=== PATIENT | male | born 1950 | race Caucasian/White ===

== ENCOUNTER → 2019-09-16 | Outpatient (CLI) | payer BC ==
[~2019-09-16] MED LIST: DUO-KAPS1 CAP PO; GLUCOSAMINE & C1 CA1 PO; LIPITOR 40MG TA40 MG PO; MULTI VITAMINS1 TAB PO; NASACORT AQ N16.5 GM NS; NORCO 325 MG-51 TAB PO; PROSCAR 5MG5 MG PO
== END ==
LOC: COL.RAD 11:53
DX: R31.9 Hematuria, unspecified (principal); R10.9 Unspecified abdominal pain

== ENCOUNTER 2019-10-16 08:35 | Day surgery (SDC) | payer BC ==
[~2019-10-16] VITALS: Ht 167.6 cm; Wt 59.5 kg
[~2019-10-16 08:35] MED LIST changes: +LIPITOR20 MG PO; -MULTI VITAMINS1 TAB PO; +ONE-A-DAY ESSE1 EACH PO
[2019-10-16 09:51] VITALS: BP 134/79; PULSE 85; TEMP 98.4
[2019-10-16] MEDS ORDERED: EPA FISH OIL1 SGL PO (10:00)
[2019-10-16] MEDS ORDERED: CIALIS5 MG PO (10:00)
[2019-10-16] MEDS ORDERED: [UNRECOGNIZED DRUG - OTHER] OP (10:03)
[2019-10-16] MEDS ORDERED: EYE DROP ADVANC15 ML OP (10:03)
[2019-10-16] MEDS ORDERED: [UNRECOGNIZED DRUG - OTHER] OP (10:04)
[2019-10-16] MEDS ORDERED: NASACORT OTC NS (10:04)
[2019-10-16 12:30] VITALS: BP 119/86; PULSE 92; TEMP 99.1
--- NOTE | 2019-10-16 12:30 | NUR ---
Pt returned via cart to [place] 1. Pt easily arouses to name. VSS-see flowsheet. Pt voided in PACU prior to returning to room. Denies needs or complaints. Side rails up. Call light and glasses at bedside, in pts reach.
[2019-10-16 12:45] VITALS: BP 126/78; PULSE 85
[2019-10-16 13:00] VITALS: BP 135/79; PULSE 85
[2019-10-16 13:15] VITALS: BP 145/87; PULSE 92
--- NOTE | 2019-10-16 14:10 | NUR ---
VS remain stable. Denies wanting to eat or drink anything.. IV removed and pressure dressing applied. Pt ambulated to bathroom to void without difficulty. Does report discomfort with urination. Discharge teaching completed, pt verbalized understanding. Pt taken via wheelchair to private vehicle with to drive pt home.
[2019-10-16 16:31] VITALS: BP 119/86; PULSE 90; TEMP 99.1
== END 2019-10-16 14:10 | disposition home or self-care (01) ==
LOC: SDCO 08:35
DX: C65.1 Malignant neoplasm of right renal pelvis (principal); K21.9 Gastro-esophageal reflux disease without esophagitis; E78.5 Hyperlipidemia, unspecified; N40.0 Benign prostatic hyperplasia without lower urinary tract symptoms; M19.90 Unspecified osteoarthritis, unspecified site; Z87.891 Personal history of nicotine dependence; Z88.6 Allergy status to analgesic agent; Z85.828 Personal history of other malignant neoplasm of skin; Z88.0 Allergy status to penicillin; Z20.828 Contact with and (suspected) exposure to other viral communicable diseases
CPT/HCPCS: C1758; C1769; C2617; J0690; J2704; J3010; J7120; Q9967

== ENCOUNTER → 2019-11-05 | Outpatient (CLI) | payer BC ==
--- NOTE | 2019-11-03 08:44 | NUR ---
LMOM WITH DATE, TIME AND INSTRUCTIONS. CALL BACK NUMBER INCLUDED
[~2019-11-05] VITALS: Ht 167.6 cm; Wt 59.5 kg
[2019-11-05] VITALS (16 sets, daily range): BP systolic 123–143; BP diastolic 72–83; PULSE 94–111
[~2019-11-05] MED LIST changes: +CIALIS5 MG PO; +EPA FISH OIL1 SGL PO; +EYE DROP ADVANC15 ML OP; +LUMIGAN 2.5 ML2.5 M1 OP; +NASACORT OTC NS; +SYSTANE 0.4%-0.1 SOL OP; +[UNRECOGNIZED DRUG - OTHER] OP; +[UNRECOGNIZED DRUG - OTHER] OP
--- NOTE | 2019-11-05 07:57 | NUR ---
PT BROUGHT INTO CT AND POSITION ON TABLE.
== END ==
LOC: COL.RAD 06:30
DX: N28.89 Other specified disorders of kidney and ureter (principal)
CPT/HCPCS: Q9967

== ENCOUNTER 2019-11-25 11:35 | Day surgery (SDC) | payer BC ==
[~2019-11-25] VITALS: Ht 167.6 cm; Wt 58.5 kg
[~2019-11-25 11:35] MED LIST changes: +LUMIGAN 5 ML5 M1 OP; -SYSTANE 0.4%-0.1 SOL OP
[2019-11-25 13:06] VITALS: BP 132/76; PULSE 89; TEMP 98.4
[2019-11-25] MEDS ORDERED: TYLENOL 500MG500 MG PO (13:15)
[2019-11-25 14:01] VITALS: BP 123/76; PULSE 94
--- NOTE | 2019-11-25 14:01 | NUR ---
Patient returns to room 3 per cart from surgery and is awake and alert. Left port a catheter site accessed and site is free of redness or swelling. IV fluids infusing and site is clear. Denies pain or nausea. Temp 97.4 and room air sats 99%.
[2019-11-25 14:16] VITALS: BP 119/78; PULSE 82
--- NOTE | 2019-11-25 14:16 | NUR ---
Room air sats 100%. Awake and sipping on water.
[2019-11-25 14:31] VITALS: BP 123/66; PULSE 78
--- NOTE | 2019-11-25 14:31 | NUR ---
Ate muffin, drank coffee and water. Denies need for pain medication. Dressing covering the right port a catheter insertion site dry. Patient states that he is now ready to go home.
--- NOTE | 2019-11-25 14:44 | NUR ---
IV discontinued and site is free of redness. Spouse called for ride home. Patient dresses self.
--- NOTE | 2019-11-25 14:57 | NUR ---
Dismissal instructions given and signed and voices understanding of these.
--- NOTE | 2019-11-25 15:00 | NUR ---
Patient dismissed to home driven by spouse and taken to the front door per wheelchair by this RN and assisted into car with instructions in hand.
== END 2019-11-25 15:25 | disposition home or self-care (01) ==
LOC: SDCO 11:35
DX: C65.1 Malignant neoplasm of right renal pelvis (principal); Z20.828 Contact with and (suspected) exposure to other viral communicable diseases; Z79.899 Other long term (current) drug therapy; Z85.828 Personal history of other malignant neoplasm of skin; Z88.0 Allergy status to penicillin; Z88.8 Allergy status to other drugs, medicaments and biological substances
CPT/HCPCS: C1788; J0690; J1644; J2704; J7120

== ENCOUNTER 2019-12-05 15:36 | Emergency (ER) | payer BC ==
[~2019-12-05] VITALS: Ht 167.6 cm; Wt 56.8 kg
[~2019-12-05 15:36] MED LIST changes: +TYLENOL 500MG500 MG PO
[2019-12-05 16:12] LABS: MEAN CELL VOLUME 85 fl (80.0-100.0); MEAN CORPUSCULAR HGB CONC 32 g/dl (33.0-37.0); MEAN PLATELET VOLUME 9.5 fl (7.4-10.4); PLATELET COUNT 141 K/mm3 (130-400)
[2019-12-05 16:13] LABS: HEMATOCRIT 29.8 % (42.0-52.0); HEMOGLOBIN 9.4 g/dl (13.5-18.0); MEAN CORPUSCULAR HEMOGLOBIN 27 pg (27.0-31.0)
[2019-12-05] MEDS ORDERED: BENADRYL25 M2 PO (16:14)
[2019-12-05 16:15] LABS: PROTHROMBIN TIME 11.4 SECONDS (9.7-12.8)
[2019-12-05 16:17] LABS: PARTIAL THROMBOPLASTIN TIME 33.3 SECONDS (26.0-37.0)
[2019-12-05] MEDS ORDERED: ZOFRAN8 MG PO (16:17)
[2019-12-05] MEDS ORDERED: ULTRAM 50MG TAB50 MG PO (16:18)
[2019-12-05 16:22] LABS: ALANINE AMINOTRANSFERASE 19 U/L (4-49); ALBUMIN 3.7 gm/dL (3.5-5.0); ALKALINE PHOSPHATASE 80 U/L (50-136); ANION GAP 8 mmol/L (7-16); AST,SGOT 22 U/L (15-37); BILIRUBIN,TOTAL 0.3 mg/dL (0.0-1.0); BLOOD UREA NITROGEN 25 mg/dL (9-20); CALCIUM 8.8 mg/dL (8.4-10.2); CARBON DIOXIDE 26 mmol/L (22-30); CHLORIDE 101 mmol/L (98-107); CREATININE, serum 1.25 (0.66-1.25); GLUCOSE 113 mg/dL (74-106); POTASSIUM 4.2 mmol/L (3.4-5.0); SODIUM 135 mmol/L (137-145); TOTAL PROTEIN 7.2 gm/dL (6.4-8.2)
[2019-12-05 16:35] LABS: TROPONIN-I < 0.012 ng/mL (0.000-0.035)
[2019-12-05 17:09] LABS: BAND 24 % (0-10); EOSINOPHIL 4 % (0-4); LYMPHOCYTE 26 % (20.0-51.0); NEUTROPHILS 37 % (42.0-75.2)
[2019-12-05 17:10] LABS: HYPOCHROMIA 2+; PLATELET ESTIMATE NORMAL (NORMAL)
[2019-12-05 19:06] VITALS: BP 127/21; PULSE 96
== END 2019-12-05 19:15 | disposition home or self-care (01) ==
LOC: COL.ER 15:36
PROVIDERS: Family Medicine
DX: R07.89 Other chest pain (principal); R11.0 Nausea; Z88.0 Allergy status to penicillin; Z85.528 Personal history of other malignant neoplasm of kidney; Z88.6 Allergy status to analgesic agent; Z88.8 Allergy status to other drugs, medicaments and biological substances
CPT/HCPCS: J1644

== ENCOUNTER → 2020-01-13 | Outpatient (CLI) | payer BC ==
[~2020-01-13] MED LIST changes: +CLARITIN 1010 MG/TAB PO; +NATURAL IRON65 MG; +PRILOTC PO; +ULTRAM 50MG TAB50 MG PO; +ZOFRAN8 MG PO
== END ==
LOC: COL.RAD 09:02
DX: C65.1 Malignant neoplasm of right renal pelvis (principal)
CPT/HCPCS: Q9967

== ENCOUNTER 2020-01-14 07:30 | Outpatient (RCR) | payer BC ==
[2020-01-14] VITALS (9 sets, daily range): BP systolic 122–150; BP diastolic 72–88; PULSE 86–99; TEMP 97.9–98.8
[~2020-01-14] VITALS: Ht 167.6 cm; Wt 60.9 kg
[~2020-01-14 07:30] MED LIST changes: -NATURAL IRON65 MG; -PRILOTC PO
[2020-01-14] MEDS ORDERED: NATURAL IRON65 MG (08:38)
[2020-01-14] MEDS ORDERED: PRILOTC PO (08:39)
--- NOTE | 2020-01-14 13:00 | NUR ---
Pt tolerated blood transfusions well. He was ambulatory during infusion multiple times to bathroom, steady gait noted. He did report mild nausea, but did not want me to call Dr. Tobias for an order for nausea med. He refused any food or beverage during his stay. Port flushed per protocol and dc'd. pt amb to exit with steady gait.
== END 2020-01-14 13:02 | disposition home or self-care (01) ==
LOC: EUO 07:30
DX: C77.2 Secondary and unspecified malignant neoplasm of intra-abdominal lymph nodes (principal); C65.1 Malignant neoplasm of right renal pelvis; Z95.9 Presence of cardiac and vascular implant and graft, unspecified
CPT/HCPCS: J1644; J7050; P9016

== ENCOUNTER 2020-07-26 16:10 | Inpatient (IN) | payer BC ==
[~2020-07-26] VITALS: Ht 167.6 cm; Wt 75.4 kg
[~2020-07-26 16:10] MED LIST changes: +NATURAL IRON65 MG PO; +PRILOTC PO
[2020-07-26 16:28] LABS: BASO # 0.1 (0.0-0.2); BASO % 0.5 % (0.0-2.0); EOS # 0.2 (0.0-0.7); EOS % 0.9 % (0-4.0); GRAN # 18.2 (1.4-6.5); GRAN % 85.1 % (42.2-75.2); LYMPH # 1.3 (1.2-3.4); LYMPH % 6.3 % (20.0-51.0); MEAN CELL VOLUME 94 fl (80.0-100.0); MEAN CORPUSCULAR HGB CONC 30 g/dl (33.0-37.0); MEAN PLATELET VOLUME 8.8 fl (7.4-10.4); MONO # 1.4 (0.1-0.6); MONO % 6.4 % (1.7-9.3); PLATELET COUNT 671 K/mm3 (130-400); RED BLOOD COUNT 2.28 M/mm3 (4.20-5.60); REDCELL DISTRIBUTION WIDTH-CV 13.5 % (11.5-14.5)
[2020-07-26 16:31] LABS: HEMATOCRIT 21.4 % (42.0-52.0); HEMOGLOBIN 6.5 g/dl (13.5-18.0); MEAN CORPUSCULAR HEMOGLOBIN 29 pg (27.0-31.0)
[2020-07-26 16:36] LABS: ALBUMIN 3.6 gm/dL (3.5-5.0); BILIRUBIN,TOTAL 0.4 mg/dL (0.0-1.0); CALCIUM 10.4 mg/dL (8.4-10.2); CREATININE, serum 1.63 (0.66-1.25); POTASSIUM 4.9 mmol/L (3.4-5.0); TOTAL PROTEIN 7.6 gm/dL (6.4-8.2)
[2020-07-26 16:41] LABS: PROTHROMBIN TIME 22.5 SECONDS (9.7-12.8)
--- NOTE | 2020-07-26 19:00 | NUR ---
Getting report from previous nurse Deborah NEWMAN, she states that Katie GREEN has pts med list and is going to do the med rec, Deborah NEWMAN also accessed the Port in pts right chest w//4Inch leung needle- states is not getting blood return , flushes well, and is OK to use per Katie GREEN.
--- NOTE | 2020-07-26 19:06 | NUR ---
Vancomycin Initial Dosing Pharmacy Note Ordering provider: Iglesia Phillips MD Indication/duration: Empiric, 7 days LABS: SCr 1.63, CrCl~34, GFR 42 Recommendation: Will give Vancomycin 1.25 gm IV x1 loading dose, then Vancomycin 1 gm IV q24h. Pharmacy will continue to monitor and check a Vancomycin trough on 07/29/20. Loading dose: 1.25 grams Maintenance dose: 1 gram every 24 hours Trough goal: 15-20 ug/mL
[2020-07-26 19:31] VITALS: BP 97/56; PULSE 123; TEMP 99.1
--- NOTE | 2020-07-26 19:40 | NUR ---
Did attempt to get blood return from Port, supervisor transcribing operators here also- since no blood return, will not use Port tonight-- will use peripheral for IV fluids and Blood.
--- NOTE | 2020-07-26 19:45 | NUR ---
Initial shift assessment done- resting, alert/oriented, has mesha to head laceration, some swelling around site, pt states he is not having head pain, Was up to bathroom with assistance, did have lots of gas but no BM, voided small amount of urine. IV fluids of NS at 125cc/hr to L/AC IV site. Did eat some supper- requesting apple juice at this time. Tele on, HR 110-120, Did call lab about blood order , lab did put in stat order for irradiated blood-- needs to come from [facility] , trying to get it tonight.
[2020-07-26 21:18] LABS: COLLECTION METHOD CLEAN CATCH
[2020-07-26 21:35] LABS: MUCOUS Present /lpf; PH 5 (5-8); SQUAMOUS EPITHELIAL None Seen /hpf; URINE APPEARANCE Hazy; URINE BACTERIA None Seen /hpf; URINE BILIRUBIN Negative (NEGATIVE); URINE BLOOD Negative (NEGATIVE); URINE COLOR Yellow; URINE GLUCOSE Negative (NEGATIVE); URINE KETONE Negative (NEGATIVE); URINE LEUKOCYTE ESTERASE Negative (NEGATIVE); URINE NITRATE Negative (NEGATIVE); URINE PROTEIN(semi-quant) Negative (NEGATIVE); URINE RBC 0-2 /hpf; URINE UROBILINOGEN Negative (NEGATIVE)
[2020-07-26 23:57] VITALS: BP 96/59; PULSE 117; TEMP 98.7
[2020-07-27] VITALS (14 sets, daily range): BP systolic 95–134; BP diastolic 54–75; PULSE 107–118; TEMP 97.4–99
--- NOTE | 2020-07-27 00:10 | NUR ---
Unit of irradiated PRBC,s started at this time-- infusing into L/AC IV site without problems-- pt did have some nausea before blood started and Zofran was given. Blood started at 60cc/hr for first 15 minutes- nurse at bedside.
[2020-07-27] MEDS ORDERED: ELIQUIS 5MG PO (01:04)
[2020-07-27] MEDS ORDERED: BENADRYL25 M2 PO (01:05)
[2020-07-27] MEDS ORDERED: ASPIRIN 81M81 MG/TA2 PO (01:05)
[2020-07-27] MEDS ORDERED: SENNA-S 50 MG-81 TAB PO (01:06)
[2020-07-27] MEDS ORDERED: MIRALAX PA17 GM/Dose PO (01:06)
[2020-07-27] MEDS ORDERED: ROBAXIN 75750 MG/TAB PO (01:06)
[2020-07-27] MEDS ORDERED: OXY IR5 MG PO (01:06)
[2020-07-27] MEDS ORDERED: SYSTANE 0.4%-0.1 SOL OP (01:07)
[2020-07-27] MEDS ORDERED: ACETIV IV (01:08)
[2020-07-27] MEDS ORDERED: TYLENOL 500MG500 MG PO (01:09)
--- NOTE | 2020-07-27 03:18 | NUR ---
Unit of blood completed- no signs /symptoms of adverse reactions.VSS. PT sleeping well since Roxicodone was given a few hours ago.
--- NOTE | 2020-07-27 05:30 | NUR ---
Up to bathroom with assist, HR up to 140,s per Tele,, back to bed, HR did go down to 110-115/min, has been between 100-118 most of the night-- did get the unit of blood earlier as ordered, getting IV antibiotics, IV fluids of NS at 125cc/hr. Katie GREEN was her at this time to check on pts status, pt states pain 7/10 all over,back etc,,will give Roxicodone as ordered, wants to watch some TV-- helped with remote to find his station. Fresh water given , no other requests.
[2020-07-27 07:31] LABS: CALCIUM 9.2 mg/dL (8.4-10.2); CREATININE, serum 1.4 (0.66-1.25); POTASSIUM 5.1 mmol/L (3.4-5.0)
[2020-07-27 07:34] LABS: BASO # 0.1 (0.0-0.2); BASO % 0.4 % (0.0-2.0); EOS # 0.1 (0.0-0.7); EOS % 0.6 % (0-4.0); GRAN # 15.6 (1.4-6.5); GRAN % 86.1 % (42.2-75.2); LYMPH # 0.8 (1.2-3.4); LYMPH % 4.5 % (20.0-51.0); MEAN CELL VOLUME 92 fl (80.0-100.0); MEAN CORPUSCULAR HGB CONC 31 g/dl (33.0-37.0); MEAN PLATELET VOLUME 8.8 fl (7.4-10.4); MONO # 1.4 (0.1-0.6); MONO % 7.5 % (1.7-9.3); RED BLOOD COUNT 2.41 M/mm3 (4.20-5.60); REDCELL DISTRIBUTION WIDTH-CV 13.5 % (11.5-14.5)
[2020-07-27 07:38] LABS: HEMATOCRIT 22.2 % (42.0-52.0); HEMOGLOBIN 6.9 g/dl (13.5-18.0); MEAN CORPUSCULAR HEMOGLOBIN 29 pg (27.0-31.0); PLATELET COUNT 474 K/mm3 (130-400)
--- NOTE | 2020-07-27 08:45 | NUR ---
Shift assessment complete. Pt up w/PT in martínez, became dizzy and had to be sat down in chair and wheeled back to room. A&Ox4. Heart RRR. Lungs CTA. Denies pain or SOA at this time. NS infusing to left AC IV. Port accessed, no blood return noted. Spoke w/K.Bulk dog food shredder operator and Rylie with [facility] who advised not to use port at this time. Hospitalist notified. Pt denies needs at this time. Call light in reach.
--- NOTE | 2020-07-27 10:07 | NUR ---
Blending Tank Helper attended clinical rounds with the team. PT/OT ordered. PICC line to be placed. The patient has renal cell carcinoma. Dr. Tobias is the patient's oncologist. Oncology consulted.
[2020-07-27 11:09] LABS: IRON,SERUM 31 ug/dL (35-150)
[2020-07-27 11:18] LABS: TOTAL IRON BINDING CAPACITY 173 ug/dL (261-462)
--- NOTE | 2020-07-27 14:00 | NUR ---
Pt refused PICC line today until hearing 's opinion. Called Jatinder's office about this and told would return call later. At this time, Jatinder's office called back stating felt a PICC line was a good idea for the pt. Pt notified of this and would like to move forward w/ PICC placement. Rylie w/Xiao unable to complete at this time but will place PICC tomorrow AM.
--- NOTE | 2020-07-27 15:12 | NUR ---
Freight Tallier met with the patient and the patient's , Ike to complete intake. The patient lives in [place] with Ike. The patient denies DME use. The patient has been needing some assistance with ADLs lately, Ike assists. The patient's PCP is Dr. Flores and patient receives medications from [facility]. The patient does not have advanced directives. The patient plans to return home at discharge. The patient sees Dr. Tobias for Ketruda treatment every three weeks. This coming Saturday, 07/29 the patient is supposed to have his third treatment. The patient inquired about a seated 4WW walker. The patient is ambulating with PT without a walker and this SW discussed the possiblity that the patient may have to purchase the walker out of pocket. A referral was sent to [facility]. Yulia reports that they will try to bill the insurance but the patient will have to sign paperwork in case the insurance will not cover it. The cost is out of pocket $200. Cost also depends on deductibles. SW contacted [facility] [employer] for walkers and they do not have any in stock and would take two weeks to get one. Since the patient is ambulating without a walker, this SW staffed Sirena with PT regarding education ambulating with a 4WW (seated). *Discharge disposition at this time* Home
[2020-07-27 17:06] LABS: HEMATOCRIT 24.2 % (42.0-52.0); HEMOGLOBIN 7.7 g/dl (13.5-18.0)
--- NOTE | 2020-07-27 17:24 | NUR ---
Blood transfusion complete at this time. Pt tolerated well. VSS.
[2020-07-28] VITALS (7 sets, daily range): BP systolic 105–135; BP diastolic 59–77; PULSE 110–117; TEMP 97.5–99
--- NOTE | 2020-07-28 06:32 | NUR ---
NO NEW ISSUES NOTED OR REPORTED BY PATIENT THROUGHOUT THE NIGHT. PRN PAIN MEDICATION ADMINISTERED REQUESTED BY PATIENT PER 'S ORDERS.
[2020-07-28 07:29] LABS: BASO # 0.1 (0.0-0.2); BASO % 0.6 % (0.0-2.0); EOS # 0.3 (0.0-0.7); EOS % 1.4 % (0-4.0); GRAN # 15.3 (1.4-6.5); GRAN % 84.6 % (42.2-75.2); LYMPH # 0.9 (1.2-3.4); MEAN CELL VOLUME 91 fl (80.0-100.0); MEAN CORPUSCULAR HGB CONC 31 g/dl (33.0-37.0); MEAN PLATELET VOLUME 8.8 fl (7.4-10.4); MONO # 1.4 (0.1-0.6); MONO % 7.6 % (1.7-9.3); PLATELET COUNT 467 K/mm3 (130-400); REDCELL DISTRIBUTION WIDTH-CV 15.4 % (11.5-14.5)
[2020-07-28 07:38] LABS: BILIRUBIN,TOTAL 0.6 mg/dL (0.0-1.0); CALCIUM 9.6 mg/dL (8.4-10.2); CREATININE, serum 1.31 (0.66-1.25); POTASSIUM 5.4 mmol/L (3.4-5.0); TOTAL PROTEIN 6.3 gm/dL (6.4-8.2)
[2020-07-28 07:41] LABS: HEMATOCRIT 25.6 % (42.0-52.0); HEMOGLOBIN 7.9 g/dl (13.5-18.0); MEAN CORPUSCULAR HEMOGLOBIN 28 pg (27.0-31.0)
--- NOTE | 2020-07-28 09:42 | NUR ---
PT. RETURNED FROM CT, IN BED SITTING UP, CONSUMING BREAKFAST AT THIS TIME. CALL LIGHT WITHIN REACH.
--- NOTE | 2020-07-28 10:52 | NUR ---
Initial visit; Patient thanked Card Game Operator for offering God's blessings.
--- NOTE | 2020-07-28 13:51 | NUR ---
Primary nurse was assisted with [phone] patient care by [facility] student Una Don and [facility] instructor Judy Daily MSN, RN.
--- NOTE | 2020-07-28 17:21 | NUR ---
Pt. resting in bed upon entering, A/O x4, with at bedside. Pt. currently free of fever, chills, s/s. Pt. was able to independently ambulate to toilet with supervision. Was able to void free of complication. Pt. did inform nurse he was feeling pain to his lower back, rates 3/10 and does not need any intervention at this time. PICC in [facility] placed 07/28/20, free of inflammation, redness or drainage. Laceration on right side of head free of drainage, redness and inflammation. SCD's on, Pt. expresses no additional needs at this time. Call light within reach.
[2020-07-28 17:29] LABS: CALCIUM 9.2 mg/dL (8.4-10.2); CREATININE, serum 1.15 (0.66-1.25); POTASSIUM 5.1 mmol/L (3.4-5.0)
[2020-07-28 17:34] LABS: HEMOGLOBIN 7.3 g/dl (13.5-18.0)
[2020-07-29] VITALS (13 sets, daily range): BP systolic 102–129; BP diastolic 60–78; PULSE 76–120; TEMP 97.7–98.4
--- NOTE | 2020-07-29 05:51 | NUR ---
PATIENT HAS RESTED COMFORTABLY IN BED SINCE RECEIVING THE 0.25MG DILAUDID IV. NO OTHER NEW ISSUES NOTED OR REPORTED BY PATIENT.
[2020-07-29 06:11] LABS: BASO # 0.1 (0.0-0.2); BASO % 0.5 % (0.0-2.0); EOS # 0.3 (0.0-0.7); EOS % 1.5 % (0-4.0); GRAN # 14.9 (1.4-6.5); GRAN % 85.1 % (42.2-75.2); LYMPH # 0.9 (1.2-3.4); MEAN CELL VOLUME 93 fl (80.0-100.0); MEAN CORPUSCULAR HGB CONC 31 g/dl (33.0-37.0); MEAN PLATELET VOLUME 9.1 fl (7.4-10.4); MONO # 1.3 (0.1-0.6); MONO % 7.2 % (1.7-9.3); PLATELET COUNT 375 K/mm3 (130-400); RED BLOOD COUNT 2.36 M/mm3 (4.20-5.60); REDCELL DISTRIBUTION WIDTH-CV 15.5 % (11.5-14.5)
[2020-07-29 06:21] LABS: CALCIUM 9.3 mg/dL (8.4-10.2); CREATININE, serum 1.14 (0.66-1.25); POTASSIUM 4.9 mmol/L (3.4-5.0)
[2020-07-29 06:58] LABS: HEMOGLOBIN 6.8 g/dl (13.5-18.0); MEAN CORPUSCULAR HEMOGLOBIN 29 pg (27.0-31.0)
--- NOTE | 2020-07-29 07:20 | NUR ---
CALLED JANETH GREEN FOR CRITICAL HGB, NEW ORDERS WRITTEN.
--- NOTE | 2020-07-29 07:46 | NUR ---
Pt reports nausea without vomiting. Primary nurse notified.
--- NOTE | 2020-07-29 09:26 | NUR ---
notified love lyman of critical wbc, no new orders written at this time.
--- NOTE | 2020-07-29 10:49 | NUR ---
I was able to reach Shahriar by phone at [phone]. She is planning on being at the hospital in about an hour. She reports that she has not heard from Dr Tobias and didn't know if Maximino had or not. I did tell her that he saw Maximino this morning. I am not sure that she is aware of what Maximino was told this morning or not and did not want to discuss over the phone. i will try to met with her after she arrives at the hospital.
--- NOTE | 2020-07-29 12:56 | NUR ---
Primary nurse was assisted with [phone] patient care by [facility] student Una Don and [facility] instructor Judy Daily MSN, RN.
--- NOTE | 2020-07-29 14:44 | NUR ---
The patient's RN notified ROCKY that Dr. Tobias came and met with the patient this morning and the patient is now wanting to pursue hospice. A palliative care consult was ordered. The patient's , Heather, arrived to the hospital. ROCKY staffed with Palliative Care Nurse, Brittni. Brittni attempted to meet with the patient and his , but the patient requested that she come back later. The hospitalist and PA then notified ROCKY that they rounded on the patient, with his at bedside. The patient and his would like to return home with hospice and they had questions for ROCKY. ROCKY then met with the patient and his , Heather. The patient confirmed that he would like to return home with hospice. Heather is supportive of his decision. ROCKY provided the patient and his with Medicare.gov's list of hospice agencies that serve [place]. The patient and his expressed interest in either [facility] or [facility] and they were interested in talking to both to determine which one they would prefer. ROCKY contacted Torres at [facility] and he came and met with the patient and his . The patient's planned on contacting [facility] to ask them questions. They would like for ROCKY to follow up with them at a later time. SW to continue to follow.
--- NOTE | 2020-07-29 14:44 | NUR ---
Pt had asked that I not come in as he wished to talk with his family earlier. He has now met with Dr Noonan, social science manager, and myself. Amanda Aranda social science manager, had also called Torres from [facility] to come talk with family. At this point they are talking with Torres from [facility] about what hospice at home might look like. Pt keeps his head down and appears to sleep during part of out conversation but then will contribute at intervals, his and son seem to be struggling with the news of advanced disease and now plan to go on hospice at home. Support offered. We will see what decisions they make.
--- NOTE | 2020-07-29 15:48 | NUR ---
PT EDUCATED ON S/S OF BLOOD TRANSFUSION REACTIONS, PT HAS NOT HAD ANY REACTIONS TO BLOOD TRANSFUSIONS IN THE PAST. VITALS TAKEN, PT REPORTS BACK PAIN BEFORE STARTING. STAYED WITH PT FOR FIRST 15 MINUTES AND THEN RATE INCREASED. VITALS CONSISTENT WITH STARTING SET.
--- NOTE | 2020-07-29 15:57 | NUR ---
ROCKY followed up with the patient and his , Ruddy. Ruddy reports that she was able to speak to [facility] and they have decided to pursue [facility]. She reports that [facility] informed her that they would not be able to admit him until Saturday though. ROCKY contacted and faxed a referral to Viola at [facility]. Viola reports that she is checking with the scheduling to see when they have availablilty to admit the patient and will contact ROCKY back, once they know. ROCKY updated Torres at [facility].
[2020-07-29] MEDS ORDERED: LUMIGAN 7.5 ML7.5 M1 OU (18:22)
[2020-07-29] MEDS ORDERED: SYSTANE BALANCE10 M1 OU ×2 (18:25→18:26)
--- NOTE | 2020-07-29 18:29 | NUR ---
PT. SITTING UP IN BED, A/O X4, WITH AT BEDSIDE. BLOOD TRANSFUSION DC'D, IV FLUIDS INFUSING, N/S VIA YAIR PICC AT 75ML/HR. VSS, PT. FREE OF FEVER, CHILLS, DIZZINESS. PICC PATENT, FREE OF INFLAMMATION, REDNESS AND DRAINAGE. PT REPORTS HIS STOMACH FEEELING "YUCKY", ZOFRAN WAS ADMINSTERED, PT HOPES IT WILL BUILD HIS APPETITE. PT EXPRESSES NO ADDITIONAL NEEDS AT THIS TIME. CALL LIGHT WITHIN REACH.
[2020-07-30 00:06] VITALS: BP 110/67; PULSE 117; TEMP 98.9
[2020-07-30 04:25] VITALS: BP 112/59; PULSE 113; TEMP 98.7
--- NOTE | 2020-07-30 05:25 | NUR ---
NO NEW ISSUES NOTED OR REPORTED BY PATIENT THROUGHOUT THE NIGHT. PATIENT UP TO THE BATHROOM SEVERAL TIMES THROUGHOUT NIGHT WITH SBA.
[2020-07-30 09:31] VITALS: BP 95/54; PULSE 112; TEMP 97.8
[2020-07-30 13:46] VITALS: BP 108/62; PULSE 111; TEMP 98.2
[2020-07-30 16:00] VITALS: BP 113/67; PULSE 108; TEMP 97.5
--- NOTE | 2020-07-30 18:56 | NUR ---
Recieved report from PATY Cabrera. Patient C/O pain in back rated 3/10. Describes the pain as cramping. Reports that it is at a manageable level. Patient up to the bathroom with 1 assist. at bedside. Patient denies any pain, discomfort, or further needs at this time. Bedside report given to PATY Thompson. Call light within reach. Fall precautions in place.
[2020-07-30 19:50] VITALS: BP 117/66; PULSE 110; TEMP 99
--- NOTE | 2020-07-30 20:00 | NUR ---
Patient assessed at this time. Alert and oriented, and able to make needs known. Given PRN Roxicodone as requested for pain to back. Double lumen PICC to RUE, with IV fluids infusing per orders. Denies SOB and dyspnea. LS CTA. Respirations even and unlabored. HRR. Capillary refill less than 3 seconds. Non-tenting skin turgor. BSAx4. Abdomen soft and non-tender. No edema. Laceration to right forehead. Voices no questions, needs, or concerns at this time. Resting in bed with call light within reach.
[2020-07-31 04:54] VITALS: BP 101/59; PULSE 118; TEMP 98.5
--- NOTE | 2020-07-31 05:53 | NUR ---
Patient has been resting in bed with call light within reach. Requested scheduled APAP this morning, stating that he takes it carlos 8 hours. Order for TID changed to Q8H, at 0600, 1400, and 2200 per patient's request. IV fluids continue per order. Voices no further questions, needs, or concerns at this time. High fall risk precautions remain in place.
[2020-07-31 07:13] VITALS: BP 109/59; PULSE 118; TEMP 98.5
--- NOTE | 2020-07-31 07:19 | NUR ---
PT IS SITTING UP IN BED ORDERING BREAKFAST AT THIS TIME. DENIES ANY PAIN, WILL CONTINUE TO MONITOR THIS. STUDENT NURSE JUAN JOSÉ WILL BE ASSISTING WITH PATIENT CARES TODAY. NO FURTHER CONCERNS AT THIS TIME.
[2020-07-31 11:24] VITALS: BP 108/59; PULSE 117; TEMP 98.8
[2020-07-31 16:07] VITALS: BP 101/59; PULSE 113; TEMP 97.9
--- NOTE | 2020-07-31 18:28 | NUR ---
Patient has been resting all day. He has not had any complaints of new pain. PRN Refresh eyedrops were given for burning eyes and did provide relief. Fluids were discontinued d/t an increase in patient intake. Overall, no changes have been noted. This student nurse will give report to the oncoming shift coordinator RN.
[2020-07-31 20:24] VITALS: BP 120/70; PULSE 90; TEMP 97.9
--- NOTE | 2020-07-31 20:26 | NUR ---
Awake, alert, oriented x 4, family at bedside, assisted to bathroom, ambulates with steady gait x sba assist with cords, VS stable, updated on plan of care- verbalized understanding.
--- NOTE | 2020-07-31 23:44 | NUR ---
Call placed to Tonia Christiansen- Patient's pulse reaching 150's while ambulating, 136 at rest, denies chest pain, SHOB noted on exertion - quickly recovers at rest to unlabored respirations. See new orders.
[2020-07-31 23:47] VITALS: BP 124/68; PULSE 136; TEMP 98.2
[2020-08-01 03:45] VITALS: BP 118/66; PULSE 124; TEMP 99
--- NOTE | 2020-08-01 07:20 | NUR ---
Patient watching TV in bed at this time. NS running at 75 ml/hr. Patient denies any pain or discomfort at this time. Patient denies any needs. Will continue to monitor. Call light within reach. Fall precautions in place.
[2020-08-01 07:31] VITALS: BP 97/57; PULSE 117; TEMP 98.6
[2020-08-01 11:34] VITALS: BP 90/60; PULSE 113; TEMP 98.1
--- NOTE | 2020-08-01 11:47 | NUR ---
Scheduled meds given. Assessment performed. Patient states that he has some pain in his back that rates a 3/10. Patient states that it is at a manageable level and that he does not require any medication at this time. IV fluid running as ordered. Patient to go home on home hospice tomorrow at 1000. Will continue to monitor. Call light within reach. Fall precautions in place.
--- NOTE | 2020-08-01 15:12 | NUR ---
Gravel Inspector collaborated with Viola, Poultry Farmer from [facility] who advised they can admit patient to home hospice tomorrow (08/02/20) and were hoping for an admit time of 1030, meaning patient would need to leave the hospital around 1000. ROCKY spoke with RNSelma who advised patient is somewhat unsteady, but with assistance from staff at the hospital and staff from [facility], should be able to transport home by private car. ROCKY met with patient who is agreeable with discharge home tomorrow on hospice. Patient states he plans to have his , Ike drive him home. ROCKY contacted Viola at [facility] who advised they would have a staff member available to assist patient into his home. ROCKY met with patient again later in the afternoon once his , Ike arrived. Ike is agreeable to plan for discharge home tomorrow on hospice. Ike feels comfortable driving patient home and advised her son should also be home to assist as needed. ROCKY updated PETER Bear on discharge plan and requested patient be seen early tomorrow to be discharged around 1000. ROCKY also updated Palliative RNBrittni. Discharge Plan: Home tomorrow on hospice services from [facility]. Patient to transport home by private car.
[2020-08-01 15:38] VITALS: BP 114/67; PULSE 111; TEMP 98.5
--- NOTE | 2020-08-01 15:50 | NUR ---
Pt reports that he would like a seated walker with hand brakes and a commode at home. He is not interested in a hospital bed at this time. Support was provided to this couple and a comfort quilt was provided to them with explanation. Maximino is looking forward to getting home. His reports that she had a kidney transplant and so was working only as needed and recently lost her job, so she is at home most of the time.
--- NOTE | 2020-08-01 19:15 | NUR ---
Patient had an uneventful day. Does not C/O of pain, discomfort, or any further needs at this time. Call light within reach. Fall precautions in place. Bedside report given to PATY Lee.
[2020-08-01 19:27] VITALS: BP 109/63; PULSE 124; TEMP 98.8
--- NOTE | 2020-08-01 20:42 | NUR ---
Awake, alert, oriented x 4, able to make needs known, head lacerations with mesha intact - SUPERINTENDENT TRANSPORTATION, no bleeding noted, wears glasses, ambulates to bathroom with SBA due to lines, VS stable, updated on plan of care.
[2020-08-01 23:02] VITALS: BP 125/72; PULSE 140; TEMP 99.6
--- NOTE | 2020-08-01 23:51 | NUR ---
Call placed to Katie GREEN re: pulse 140's, patient asymptomatic, B/P 125/72, will d/c home with hospice in am, no new orders at this time.
[2020-08-02 04:02] VITALS: BP 109/64; PULSE 129; TEMP 99.3
--- NOTE | 2020-08-02 05:56 | NUR ---
Resting quietly, IV fluids running as ordered, call martinez w/i reach, will continue to monitor.
--- NOTE | 2020-08-02 06:53 | NUR ---
Patient awake in bed at this time. Patient denies any pain, discomfort, or further needs at this time. Will continue to monitor. Call light within reach. Fall precautions in place.
[2020-08-02 07:25] VITALS: BP 110/60; PULSE 119; TEMP 97.8
[2020-08-02] MEDS ORDERED: FENTANYL 50MCG TD (08:44)
--- NOTE | 2020-08-02 12:38 | NUR ---
Nursery Helper attended clinical rounds with the team and patient to discharge home on hospice. ROCKY coordinated with Viola, Bed And Breakfast Operator at [facility] on time of discharge. Patient's , Ike to provide transport home. ROCKY faxed discharge orders and medications to Viola at [facility].
--- NOTE | 2020-08-02 14:06 | NUR ---
Patient meets discharge criteria. Vital signs stable. Tiffany taken out of wound on Pts. head. Tolerated procedure well. Home hospice will be meeting patient and family at home. Orders for PICC line removal after discharge have been given to home hospice agency. Patient education/instructions have been given. All questions answered. Patient denies any further questions or concerns. Patient escorted out of the building by via mario alberto staff by wheelchair.
== END 2020-08-02 12:00 | disposition hospice, home (50) | DRG 872 ==
LOC: COL.ER 16:10 → MEDICAL 17:48
PROVIDERS: Family Medicine; Physician Assistant; Student in an Organized Health Care Education/Training Program; ADMIT Internal Medicine
PROC: 0HQ0XZZ Repair Scalp Skin, External Approach (ICD-10-PCS; 2020-07-26)
PROC: 02HV33Z Insertion of Infusion Device into Superior Vena Cava, Percutaneous Approach (ICD-10-PCS; principal; 2020-07-28)
DX: A41.9 Sepsis, unspecified organism (principal); N17.9 Acute kidney failure, unspecified; C64.1 Malignant neoplasm of right kidney, except renal pelvis; T82.524A Displacement of infusion catheter, initial encounter; E78.5 Hyperlipidemia, unspecified; R65.20 Severe sepsis without septic shock; K21.9 Gastro-esophageal reflux disease without esophagitis; N40.0 Benign prostatic hyperplasia without lower urinary tract symptoms; Z66 Do not resuscitate; Z51.5 Encounter for palliative care; D64.9 Anemia, unspecified; E78.1 Pure hyperglyceridemia; G89.29 Other chronic pain; N18.2 Chronic kidney disease, stage 2 (mild); D47.3 Essential (hemorrhagic) thrombocythemia; E87.5 Hyperkalemia; S01.01XA Laceration without foreign body of scalp, initial encounter; Z87.891 Personal history of nicotine dependence; Z88.0 Allergy status to penicillin; Z88.6 Allergy status to analgesic agent; Z90.5 Acquired absence of kidney; W19.XXXA Unspecified fall, initial encounter
CPT/HCPCS: 99223-AI; 99232-AI; 99233-AI; 99239; C1751; C9113; J0692; J1170; J1644; J2405; J2550; J3370; J7030; J7050; J7120; P9040; Q9967